=== PATIENT | female | born 1995 | race Caucasian/White ===

== ENCOUNTER 2017-09-18 20:11 | Emergency (ER) | payer OTHER ==
[~2017-09-18] VITALS: Ht 154.9 cm; Wt 48.5 kg
[~2017-09-18 20:11] MED LIST: AMOX1TAB12 PO; BACTROBAN OINT22 GM TP; CEFTIN500 MG PO; ROCEPHIN1 G/VIAL IJ; URIN D.S. TABLE1 TAB PO; VALTREX1000 MG PO
[2017-09-19] MEDS ORDERED: URETRON D-S TAB1 TAB PO (01:50)
[2017-09-19] MEDS ORDERED: CEFUROXIME500 MG PO (01:50)
== END 2017-09-19 01:47 | disposition home or self-care (01) ==
LOC: ER 20:11
DX: N39.0 Urinary tract infection, site not specified (principal)

== ENCOUNTER 2017-10-20 20:26 | Emergency (ER) | payer OTHER ==
[~2017-10-20] VITALS: Ht 154.9 cm; Wt 48.1 kg
[~2017-10-20 20:26] MED LIST changes: +CEFUROXIME500 MG PO; +URETRON D-S TAB1 TAB PO
== END 2017-10-21 02:45 | disposition home or self-care (01) ==
LOC: ER 20:26
DX: S30.0XXA Contusion of lower back and pelvis, initial encounter (principal); W10.8XXA Fall (on) (from) other stairs and steps, initial encounter; Y93.89 Activity, other specified; Y92.69 Other specified industrial and construction area as the place of occurrence of the external cause; Y99.8 Other external cause status